=== PATIENT | male | born 1950 | race Caucasian/White ===

== ENCOUNTER 2021-11-24 17:15 | Inpatient (IN) | payer MEDICARE, OTHER ==
[~2021-11-24] VITALS: Ht 167.6 cm; Wt 56.2 kg
[2021-11-24] MEDS ORDERED: MELA5TAB PO (19:34)
[2021-11-24] MEDS ORDERED: PYRI100T18 PO (19:34)
[2021-11-24] MEDS ORDERED: MULT-619 PO (19:34)
[2021-11-24] MEDS ORDERED: ASPI81TA31 PO (19:34)
[2021-11-24] MEDS ORDERED: ATOR80TA PO (19:34)
[2021-11-24] MEDS ORDERED: VITAMIN D PO (19:34)
[2021-11-24] MEDS ORDERED: CALC-494 PO (19:34)
[2021-11-24] MEDS ORDERED: ACET-2154 PO (19:34)
[2021-11-24] MEDS ORDERED: ASCO500C18 PO (19:34)
[2021-11-24] MEDS ORDERED: FOLI1TAB94 PO (19:34)
[2021-11-24] MEDS ORDERED: METO-356 PO (19:34)
[2021-11-24] MEDS ORDERED: VITA1CAP PO (19:34)
[2021-11-24] MEDS ORDERED: DOCU100C36 PO (19:34)
[2021-11-24] MEDS ORDERED: ACET-73 PO (19:34)
[2021-11-24 20:00] LABS: *BLOOD, URINE NEGATIVE (NEGATIVE); *COLOR,URINE YELLOW (YELLOW); *KETONES,URINE 1+ (NEGATIVE); *UROBILINOGEN,URINE >=8.0 E.U./dl (NORMAL); LEUKOCYTE ESTERASE ,URINE NEGATIVE (NEGATIVE); NITRITE, URINE NEGATIVE (NEGATIVE); UGLUCOSE NEGATIVE (NEGATIVE)
[2021-11-24 20:02] LABS: *BILIRUBIN,URIN 1+ (NEGATIVE)
[2021-11-24 20:12] LABS: *CLARITY,URINE HAZY (CLEAR); BACTERIA,URINE FEW /HPF (NONE SEEN); RBC,URINE 0-3 /HPF (0-3); SQUAMOUS EPITHELIAL CELL,UR FEW /HPF (NONE SEEN)
[2021-11-24 20:13] LABS: *AMPHETAMINE, URINE NEGATIVE (NEGATIVE); *CANNABINOID, URINE NEGATIVE (NEGATIVE); *COCCAINE, URINE NEGATIVE (NEGATIVE); *OPIATE, URINE NEGATIVE (NEGATIVE); *PHENCYCLIDINE SCREEN,URINE NEGATIVE (NEGATIVE); URINE AMORPHOUS PHOSPHATES MANY /HPF
[2021-11-24 20:19] LABS: HEMATOCRIT 39.5 % (36.7-47.1); MEAN CORPUSCULAR HEMOGLOBIN 33.8 uug (23.8-33.4); MEAN CORPUSCULAR VOLUME 96.9 fL (73.0-96.2); PLATELET COUNT (AUTO) 224 K/uL (152-348)
[2021-11-24 20:25] LABS: CREATININE 0.7 mg/dL (0.6-1.3); POTASSIUM 3.5 mmol/L (3.5-5.1)
[2021-11-24 20:30] LABS: ALANINE AMINOTRANSFERASE 17 U/L (16-63); ALKALINE PHOSPHATASE 69 U/L (50-136); ASPARTATE AMINOTRANSFERASE 18 U/L (15-37); BILIRUBIN,DIRECT 0.2 mg/dL (0.0-0.2); BILIRUBIN,TOTAL 0.7 mg/dL (0.2-1.0); ETHANOL < 3 MG/DL (0-0); TOTAL PROTEIN, SERUM 7.5 g/dL (6.4-8.2)
[2021-11-24 20:32] LABS: ACETAMINOPHEN < 2.0 ug/mL (10-30)
--- NOTE | 2021-11-24 21:50 | NUR ---
MEDICALLY CLEAR BY DR HOLDER.
--- NOTE | 2021-11-24 21:53 | NUR ---
CALLED KIERA FROM PET TE[facility]. ETA IS 1.5HR FROM NOW.
--- NOTE | 2021-11-24 23:14 | NUR ---
TONYA FROM PET TE[facility] HERE TO EVAL PATIENT
--- NOTE | 2021-11-24 23:48 | NUR ---
TONYA FROM PET TEAM PLACED PATIENT ON 5150 HOLD FOR GD AND DTO.
[2021-11-25] MEDS ORDERED: LORAZEPAM 0.5 MG TABLET PO PRN (00:45)
[2021-11-25] MEDS ORDERED: MAGNESIUM HYDROXIDE 30 ML LIQUID UDC PO PRN (00:45)
[2021-11-25] MEDS ORDERED: ACETAMINOPHEN 325 MG TABLET PO PRN (00:45)
[2021-11-25] MEDS ORDERED: BLOOD SUGAR DIAGNOSTIC 1 EACH STRIP VI ONE (00:45)
[2021-11-25] MEDS ORDERED: MAG HYDROX/AL HYDROX/SIMETH 30 ML LIQUID UDC PO PRN (00:45)
--- NOTE | 2021-11-25 00:45 | NUR ---
PATIENT TRANSFERED TO MHU VIA [facility]NY WITH NO DISTRESS NOTED.
[2021-11-25 01:27] VITALS: BP 146/99
--- NOTE | 2021-11-25 02:15 | NUR ---
Admitted from the ER on a 72 hour hold for danger to others/gravely disabled, a transfer from [facility]. According to the hold, he was aggressive towards staff and other residents, and has been refusing medications and food, for the past week. Upon arrival, he was confused, speaking British, but speaking incoherently, according to truss driver helper. He was advised of his hold, but was unable to comprehend. He was cooperative, with physical assessment, used the urinal, and went right to sleep. As of now, he remains asleep. no distress noted. Patients rights book in British, was placed at bedside.
--- NOTE | 2021-11-25 09:38 | NUR ---
SW Facility Contact: SW contacted [facility] [place] [address] ([phone]) and spoke to Natalie Chowdhury ([phone]) who stated that the pt is welcome back upon discharge and that their facility will provide transportation from [facility] upon discharge. Natalie stated they do not need prior notice for transportation.
--- NOTE | 2021-11-25 10:12 | NUR ---
GPS: RECEIVED PT ON BED, AWAKE AND ALERT TO HIS NAME ONLY. WITH CONFUSION NOTED. PHYSICAL THERAPY DID SOME AMBULATION ON PT AND PT WALKED WELL PER ASSESSMENT. NO AGITATION AT THIS TIME. WILL MONITOR PT.
--- NOTE | 2021-11-25 11:15 | NUR ---
HARPAL Initial Discharge Note: Pt currently resides at [facility] facility located at [address] [place] [address] ([phone]). Per pt's daughter Fran ([phone]), pt can return to his accepted facility at [facility] or discharge to a new SNF of pt's psychiatrists choice. HARPAL will continue to work with pt, family and MD to ensure a safe and proper discharge plan.
--- NOTE | 2021-11-25 11:16 | NUR ---
HARPAL Admit Source: Per 5150 hold, pt was brought to [facility] from ER to be evaluated. Pt currently resides at [facility] facility located at [address] [place] [address] ([phone]). Per pt's daughter Fran ([phone]), pt can return to his accepted facility at [facility] or discharge to a new SNF of pt's psychiatrists choice. HARPAL will continue to work with pt, family and MD to ensure a safe and proper discharge plan.
--- NOTE | 2021-11-25 11:41 | NUR ---
Firearms Report: Academic Computing Director completed and submitted a [employer] firearms report for 5150 a danger to others and grave disability certifications. A copy of report has been placed in patient chart.
[2021-11-25 15:43] VITALS: BP 106/66
--- NOTE | 2021-11-25 17:40 | NUR ---
GPS: PT ISOLATIVE AND STAYS ON BED THE WHOLE TIME. NO AGITATION NOTED OR AGGRESSIVE BEHAVIOR. PT HAVE POOR INTAKE. ENCOURAGED TO INCREASE FOOD AND FLUID INTAKE. PT CONFUSED AND UNABLE TO COMPREHEND AND NO SENSE WHEN IT COMES TO CONVERSATION. WILL MONITOR PT.
[2021-11-25 19:45] VITALS: BP 128/84
[2021-11-25] MEDS: DIVALPROEX SPRINKLE 125 MG CAP.SPRINK PO SCH ×2 (20:44→21:00)
[2021-11-25] MEDS: QUETIAPINE FUMARATE 25 MG TABLET PO SCH ×2 (20:44→21:00)
--- NOTE | 2021-11-25 22:00 | NUR ---
patient noted A/O x 2. he is noted isolative and guarded. Poor insight is noted into his admission to MHU. he refused all his QHS medications/ He was informed of the importance to comply with his medication to improved his condition yet ineffective. Patient was reassured for his safety. reality check done. safety and fall precaution in place. V/S stable. PO fluids and snacks were given. will continue to monitor.
[2021-11-26 07:30] VITALS: BP 137/88
[2021-11-26 07:44] LABS: MEAN CORPUSCULAR HEMOGLOBIN 33.9 uug (23.8-33.4); MEAN CORPUSCULAR VOLUME 97.8 fL (73.0-96.2); PLATELET COUNT (AUTO) 207 K/uL (152-348)
[2021-11-26 08:07] LABS: CREATININE 0.7 mg/dL (0.6-1.3); MAGNESIUM 2.1 mg/dL (1.8-2.4); PHOSPHOROUS 3.4 mg/dL (2.5-4.9); POTASSIUM 3.2 mmol/L (3.5-5.1)
[2021-11-26 08:27] LABS: THYROID STIMULATING HORMONE 1.386 mIU/mL (0.358-3.740)
[2021-11-26] MEDS: PYRIDOXINE HCL 100 MG TABLET PO SCH (08:45)
[2021-11-26] MEDS: ASCORBIC ACID 500 MG TABLET PO SCH (08:45)
[2021-11-26] MEDS: METOPROLOL SUCCINATE XL 25 MG TAB.SR.24H PO SCH (08:48)
[2021-11-26] MEDS: MULTIVITAMINS,THERAPEUTIC TABLET PO SCH (08:49)
[2021-11-26] MEDS: QUETIAPINE FUMARATE 25 MG TABLET PO SCH ×2 (08:49→21:00)
[2021-11-26] MEDS: DIVALPROEX SPRINKLE 125 MG CAP.SPRINK PO SCH ×2 (08:50→21:00)
[2021-11-26] MEDS: DOCUSATE SODIUM 100 MG CAPSULE PO SCH (08:50)
[2021-11-26] MEDS: FOLIC ACID 1 MG TABLET PO SCH (08:50)
[2021-11-26] MEDS: ASPIRIN 81 MG TAB.CHEW PO SCH (08:50)
[2021-11-26] MEDS: VITAMIN B COMPLEX 1 TABLET PO SCH (08:50)
[2021-11-26] MEDS ORDERED: Medication Not On Formulary EA (Ascorbic Acid (Vitamin C) 1 CAP) PO SCH (09:00)
[2021-11-26] MEDS ORDERED: POTASSIUM CHLORIDE 20 MEQ TAB.PRT.SR PO ONE (09:30)
--- NOTE | 2021-11-26 09:52 | NUR ---
GPS: PT REMAIN ISOLATIVE, STAYS IN HIS ROOM. REFUSED THE AM MEDS GIVEN. EXPLAINED THE RISK AND BENEFITS.
[2021-11-26 16:00] VITALS: BP 105/69
[2021-11-26 20:00] VITALS: BP 111/81
[2021-11-26] MEDS: ATORVASTATIN 20 MG TABLET PO SCH (21:00)
--- NOTE | 2021-11-26 22:08 | NUR ---
Received patient in his room in bed. He is noted A/O x 1. he is a poor historian, tangental and suspicious. Poor insight and judgment is noted as to the reason for his admission to MHU. He refused all his [facility] medications. he was informed of the importance of compliant with his medication regiment to improved his symptoms, yet ineffective. V/S are stable. he was given PO fluid and snacks. He was reassured for his safety. safety and fall precautions are in place. will continue to monitor.
--- NOTE | 2021-11-27 06:42 | NUR ---
patient slept for approx 8.45 hrs through the night, he continue Isolative and withdrawn. His Hold will today at 2348. Will continue to monitor.
[2021-11-27 07:30] VITALS: BP 119/84
[2021-11-27] MEDS: DOCUSATE SODIUM 100 MG CAPSULE PO SCH (09:00)
[2021-11-27] MEDS: MULTIVITAMINS,THERAPEUTIC TABLET PO SCH (09:00)
[2021-11-27] MEDS: FOLIC ACID 1 MG TABLET PO SCH (09:00)
[2021-11-27] MEDS: PYRIDOXINE HCL 100 MG TABLET PO SCH (09:00)
[2021-11-27] MEDS: DIVALPROEX SPRINKLE 125 MG CAP.SPRINK PO SCH ×2 (09:00→20:18)
[2021-11-27] MEDS: METOPROLOL SUCCINATE XL 25 MG TAB.SR.24H PO SCH (09:00)
[2021-11-27] MEDS: ASCORBIC ACID 500 MG TABLET PO SCH (09:00)
[2021-11-27] MEDS: VITAMIN B COMPLEX 1 TABLET PO SCH (09:00)
[2021-11-27] MEDS: ASPIRIN 81 MG TAB.CHEW PO SCH (09:00)
[2021-11-27] MEDS: QUETIAPINE FUMARATE 25 MG TABLET PO SCH ×2 (09:00→20:18)
--- NOTE | 2021-11-27 10:01 | NUR ---
GPS: PT CONTINUES TO REFUSE MEDICATION. EXPLAINED RISK AND BENEFITS OF TAKING MEDICATION. SEEN BY PSYCHIATRIST/CHECKOUT OPERATOR, WILL FILE REISE PETITION. UNABLE TO COMPREHEND MOST OF THE TIME.
[2021-11-27 16:00] VITALS: BP 127/80
[2021-11-27] MEDS: ENSURE ENLIVE (VAN) 240 ML LIQUID PO SCH (17:00)
[2021-11-27 20:00] VITALS: BP 115/87
[2021-11-27] MEDS: ATORVASTATIN 20 MG TABLET PO SCH (20:18)
--- NOTE | 2021-11-28 06:22 | NUR ---
14-day Hold signed by Dr. Aguilar, faxed to court by María BURGER. Copies given to pt and placed in chart. Will endorse confirmation of receipt to day shift nurse.
[2021-11-28 07:30] VITALS: BP 123/73
[2021-11-28] MEDS: PYRIDOXINE HCL 100 MG TABLET PO SCH (09:00)
[2021-11-28] MEDS: ASCORBIC ACID 500 MG TABLET PO SCH (09:00)
[2021-11-28] MEDS: FOLIC ACID 1 MG TABLET PO SCH (09:00)
[2021-11-28] MEDS: DOCUSATE SODIUM 100 MG CAPSULE PO SCH (09:00)
[2021-11-28] MEDS: QUETIAPINE FUMARATE 25 MG TABLET PO SCH ×2 (09:00→20:32)
[2021-11-28] MEDS: ASPIRIN 81 MG TAB.CHEW PO SCH (09:00)
[2021-11-28] MEDS: MULTIVITAMINS,THERAPEUTIC TABLET PO SCH (09:00)
[2021-11-28] MEDS: DIVALPROEX SPRINKLE 125 MG CAP.SPRINK PO SCH ×2 (09:00→10:38)
[2021-11-28] MEDS: VITAMIN B COMPLEX 1 TABLET PO SCH (09:00)
[2021-11-28] MEDS: METOPROLOL SUCCINATE XL 25 MG TAB.SR.24H PO SCH (09:00)
[2021-11-28] MEDS: ENSURE ENLIVE (VAN) 240 ML LIQUID PO SCH ×3 (10:35→17:00)
[2021-11-28 16:45] VITALS: BP 123/80
[2021-11-28] MEDS: ATORVASTATIN 20 MG TABLET PO SCH (20:32)
[2021-11-28 20:45] VITALS: BP 140/98
[2021-11-29 07:29] VITALS: BP 129/76
[2021-11-29] MEDS: MULTIVITAMINS,THERAPEUTIC TABLET PO SCH (08:32)
[2021-11-29] MEDS: ASCORBIC ACID 500 MG TABLET PO SCH (08:32)
[2021-11-29] MEDS: QUETIAPINE FUMARATE 25 MG TABLET PO SCH ×2 (08:32→21:49)
[2021-11-29] MEDS: FOLIC ACID 1 MG TABLET PO SCH (08:32)
[2021-11-29] MEDS: ASPIRIN 81 MG TAB.CHEW PO SCH (08:32)
[2021-11-29] MEDS: VITAMIN B COMPLEX 1 TABLET PO SCH (08:33)
[2021-11-29] MEDS: DOCUSATE SODIUM 100 MG CAPSULE PO SCH (08:33)
[2021-11-29] MEDS: DIVALPROEX SPRINKLE 125 MG CAP.SPRINK PO SCH ×2 (08:33→21:49)
[2021-11-29] MEDS: ENSURE ENLIVE (VAN) 240 ML LIQUID PO SCH ×3 (08:47→17:00)
[2021-11-29] MEDS: METOPROLOL SUCCINATE XL 25 MG TAB.SR.24H PO SCH (08:50)
[2021-11-29] MEDS: PYRIDOXINE HCL 100 MG TABLET PO SCH (08:52)
--- NOTE | 2021-11-29 09:05 | NUR ---
Gps/Sales And Marketing Intern- Patient gets tricky, tried to spit out meds., pretending he swallowed his pills, reoffered, crushed meds, administered with small bites of apple sauce, instructed to swallow twice, gave sips of water at intervals, making sure he swallowed . Poor intake, assisted with his ensure, poor initiation,
[2021-11-29 16:44] VITALS: BP 131/85
[2021-11-29 20:00] VITALS: BP 123/87
[2021-11-29] MEDS: ATORVASTATIN 20 MG TABLET PO SCH (21:49)
--- NOTE | 2021-11-30 04:35 | NUR ---
Received to care, lying in bed. Compliant with medications and assisted with a snack, at bedtime, in which he ate 50% of a container of pudding, and a glass of milk. Afterwards, he was seen walking the hallway, before going to sleep. He has mostly slept through the night, soundly. He currently continues to sleep. No distress noted.
[2021-11-30 07:30] VITALS: BP 127/30
[2021-11-30] MEDS: DIVALPROEX SPRINKLE 125 MG CAP.SPRINK PO SCH ×3 (08:55→21:00)
[2021-11-30] MEDS: ASPIRIN 81 MG TAB.CHEW PO SCH (08:55)
[2021-11-30] MEDS: FOLIC ACID 1 MG TABLET PO SCH (08:56)
[2021-11-30] MEDS: QUETIAPINE FUMARATE 25 MG TABLET PO SCH ×3 (08:56→21:00)
[2021-11-30] MEDS: ASCORBIC ACID 500 MG TABLET PO SCH (08:56)
[2021-11-30] MEDS: MULTIVITAMINS,THERAPEUTIC TABLET PO SCH (08:56)
[2021-11-30] MEDS: PYRIDOXINE HCL 100 MG TABLET PO SCH ×2 (08:58→09:41)
[2021-11-30] MEDS: METOPROLOL SUCCINATE XL 25 MG TAB.SR.24H PO SCH (08:58)
[2021-11-30] MEDS: DOCUSATE SODIUM 100 MG CAPSULE PO SCH (09:00)
[2021-11-30] MEDS: VITAMIN B COMPLEX 1 TABLET PO SCH (09:42)
[2021-11-30] MEDS: ENSURE ENLIVE (VAN) 240 ML LIQUID PO SCH ×3 (09:43→17:30)
--- NOTE | 2021-11-30 11:30 | NUR ---
Gps/Bell Attendant- FADIA Manuel in the room with patient , while making pt's bed, patient had a fall facing face forward, per TENTER FRAME OPERATOR unable to get to help patient right away r/t she's in the other side of the bed. Noted patient right upper eyebrow laceration, , called PRINTED CIRCUIT BOARD PANELS DEBURRER to evaluate pt. Dr Jeter was called by Charge Nurse Radha, orders received to take patient ER for further evaluation. Nadja Foreman DNP was also in to see patient. B/P 129/99-02 sat 97%, HR 54 18 , complained of pain on his forehead, ice pack applied . Taken to ER via bed w/ 2 RT. assisting.
--- NOTE | 2021-11-30 13:30 | NUR ---
Gps/Furniture Upholstery Mechanic- Called Fran (daughter) was informed , notified , of the fall. Per daughter unable to come for visit today, but will try to call patient lat a later time when he's back in the the unit ([facility]HU)
[2021-11-30] MEDS ORDERED: LIDOCAINE 1%-EPI 1:100,000 20 ML VIAL IJ ONE (13:45)
--- NOTE | 2021-11-30 15:30 | NUR ---
Gps/Die Cast Supervisor- Received back from ER via bed, ER Nurse assisting staff in bringing patient back to his room. In no sign of any distress, reviewed safety. Bandaid dressing to left eyebrow , noted wit scanty blood stain on the corner of his left eye. face cleansed with NS pat dry, folded 2x2 dressings was applied, noted suture inner cantus of the left eye brown. Safety reviewed in simple Honduran , bed alarm on, monitoring needs.
[2021-11-30 16:00] VITALS: BP 124/78
--- NOTE | 2021-11-30 17:35 | NUR ---
Gps/Retread Builder- Fluids offered, , oral mucosa dry. Also noted abrasion to bridge of his nose , kept left eyebrow dressing iintact. , secured. . B/P 124/78, HR 70, resp. 18, Temp. 97.8 otal , grimaces noted during dressing chnages left eyebrow
[2021-11-30 20:00] VITALS: BP 107/77
[2021-11-30] MEDS: ATORVASTATIN 20 MG TABLET PO SCH ×2 (20:05→21:00)
--- NOTE | 2021-11-30 21:00 | NUR ---
Received patient in the hallway sitting in a lucía chair closed to the nursing station for safety. He is noted A/O x 1. Disorganized speech, tangental, poor eye contact, and poor historian. affect is blunted, mood is low. Patient continue refusing QHS PO medications. Multiple attempts to administer medication, yet ineffective. will continue to offer. Laceration adjacent to his left eyebrow was cleaned with NS and a new bandage was applied. Sutures are intact; No active bleeding, no discharge was noted and, no S/S of infection was observed at this time. V/S stable. PO fluids and snacks were offered, patient has poor intake, he requires redirection and reassurance. Patient is reassured for his safety. safety and fall precautions are in place. Will continue to monitor.
[2021-12-01 07:38] VITALS: BP 110/76
[2021-12-01] MEDS: ASPIRIN 81 MG TAB.CHEW PO SCH (08:50)
[2021-12-01] MEDS: FOLIC ACID 1 MG TABLET PO SCH (08:50)
[2021-12-01] MEDS: ENSURE ENLIVE (VAN) 240 ML LIQUID PO SCH ×3 (08:50→16:42)
[2021-12-01] MEDS: DIVALPROEX SPRINKLE 125 MG CAP.SPRINK PO SCH ×2 (08:50→21:56)
[2021-12-01] MEDS: DOCUSATE SODIUM 100 MG CAPSULE PO SCH (08:50)
[2021-12-01] MEDS: VITAMIN B COMPLEX 1 TABLET PO SCH (08:50)
[2021-12-01] MEDS: QUETIAPINE FUMARATE 25 MG TABLET PO SCH (08:51)
[2021-12-01] MEDS: METOPROLOL SUCCINATE XL 25 MG TAB.SR.24H PO SCH (08:51)
[2021-12-01] MEDS: ASCORBIC ACID 500 MG TABLET PO SCH (08:51)
[2021-12-01] MEDS: MULTIVITAMINS,THERAPEUTIC TABLET PO SCH (08:51)
--- NOTE | 2021-12-01 15:44 | NUR ---
GPS: Nursing Notes: Destructive Behavior To Others: Patient is awake and responding to his name, impaired judgment, resistant with nursing care, paranoid behavior, resistant with nursing care, episode of shouting to unseen others, refusing his medications, internally preoccupied, unable to formulate a viable plan for self care, disorganized, confused, disoriented, continue to monitor for safety, continue with treatment plan.
[2021-12-01] MEDS ORDERED: HALOPERIDOL LACTATE 5 MG/1 ML VIAL IM SCH (17:15)
[2021-12-01] MEDS: HALOPERIDOL LACTATE 10 MG/5 ML ORAL SOLUTION UDC PO SCH (17:54)
--- NOTE | 2021-12-01 17:55 | NUR ---
GPS: Nursing Notes: Haldol Injection: Patient is Rilos. Medication - Haldol PO taken by patient, so Haldol injection not given per Dr. Aguilar's order, continue to monitor for safety, continue with treatment plan.
[2021-12-01] MEDS ORDERED: HALOPERIDOL LACTATE 5 MG/1 ML VIAL IM PRN (18:30)
[2021-12-01 20:00] VITALS: BP 108/63
[2021-12-01 20:14] VITALS: BP 140/99
[2021-12-01 20:24] VITALS: BP 126/99
[2021-12-01 20:25] VITALS: BP 108/63
--- NOTE | 2021-12-01 20:27 | NUR ---
ORTHOSTATIC VITAL SIGNS NOTE; B/P 140/99, HR 86 lying/ 126/99, HR 96 sitting/ 108/63, HR standing. Pt is confused, but did not appear to exhibit dizziness, or light headedness.
[2021-12-01] MEDS: ATORVASTATIN 20 MG TABLET PO SCH (21:56)
[2021-12-01] MEDS: TEMAZEPAM 7.5 MG CAPSULE PO PRN (23:21)
--- NOTE | 2021-12-02 02:49 | NUR ---
Received this evening, up in annemarie chair, at nurses desk, for safety, talking to self. Per banbury operator. he is confused and oriented to person only. Compliant with medications, but was chewing pills, when administered. Assisted wirh feeding some pudding, but able \to drink a whole bottle of ensure himself, a glass at a time. PRN Restoril was given at 2321, and he was assisted to bed, at around 0030, and went right to sleep, and continues to sleep. No distress noted.
[2021-12-02 08:00] VITALS: BP 117/81
[2021-12-02] MEDS: ASPIRIN 81 MG TAB.CHEW PO SCH (08:22)
[2021-12-02] MEDS: FOLIC ACID 1 MG TABLET PO SCH (08:23)
[2021-12-02] MEDS: ASCORBIC ACID 500 MG TABLET PO SCH (08:23)
[2021-12-02] MEDS: DOCUSATE SODIUM 100 MG CAPSULE PO SCH (08:23)
[2021-12-02] MEDS: HALOPERIDOL LACTATE 10 MG/5 ML ORAL SOLUTION UDC PO SCH ×2 (08:23→16:35)
[2021-12-02] MEDS: DIVALPROEX SPRINKLE 125 MG CAP.SPRINK PO SCH ×2 (08:23→21:45)
[2021-12-02] MEDS: PYRIDOXINE HCL 100 MG TABLET PO SCH (08:23)
[2021-12-02] MEDS: VITAMIN B COMPLEX 1 TABLET PO SCH (08:23)
[2021-12-02] MEDS: MULTIVITAMINS,THERAPEUTIC TABLET PO SCH (08:23)
[2021-12-02] MEDS: METOPROLOL SUCCINATE XL 25 MG TAB.SR.24H PO SCH (08:24)
[2021-12-02] MEDS: ENSURE ENLIVE (VAN) 240 ML LIQUID PO SCH ×3 (08:27→16:36)
--- NOTE | 2021-12-02 13:13 | NUR ---
GPS: Nursing Notes: Thought Disorder: Patient is awake and responding to his name, confused, disoriented, disorganized, resistant with nursing care, internally preoccupied, episodes of talking to unseen others, impaired judgment, redirected and reoriented during shift, slightly paranoid at times, believes that we are against him, unable to formulate a viable plan for self care, continue to monitor for safety, continue with treatment plan.
[2021-12-02 16:00] VITALS: BP 104/67
[2021-12-02 17:12] VITALS: BP_SYST 104; BP_SYST 128; BP_DIAS 67; BP_DIAS 72
[2021-12-02 20:09] VITALS: BP 130/87
[2021-12-02] MEDS: ATORVASTATIN 20 MG TABLET PO SCH (21:45)
[2021-12-02] MEDS: TEMAZEPAM 7.5 MG CAPSULE PO PRN (22:56)
--- NOTE | 2021-12-03 03:48 | NUR ---
RECEIVED TO CARE, UP IN KELLY CHAIR FOR SAFETY, SLEEPING INTERMITTENTLY. COMPLIANT WITH MEDICATIONS, FOOD, AND FLUIDS. PRN RESTORIL WAS GIVEN AT 2256 FOR INCREASING RESTLESSNESS. hE WAS ASSISTED TO BED AROUND 2330, AND SLEPT UNTIL AROUND 0330, WHEN HE CLIMBED OUT OF BED. hE WAS THEN ASSISTED UP IN THE KELLY CHAIR WITH PILLOWS AND BLANKET AT NURSES STATION, AND WENT BACK TO SLEEP, AND REMAINS CALM AND ASLEEP. NO DISTRESS NOTED.
[2021-12-03 07:51] VITALS: BP 90/53
[2021-12-03] MEDS: METOPROLOL SUCCINATE XL 25 MG TAB.SR.24H PO SCH (08:50)
[2021-12-03] MEDS: DOCUSATE SODIUM 100 MG CAPSULE PO SCH (09:00)
[2021-12-03] MEDS: ASPIRIN 81 MG TAB.CHEW PO SCH (09:00)
[2021-12-03] MEDS: FOLIC ACID 1 MG TABLET PO SCH (09:00)
[2021-12-03] MEDS: PYRIDOXINE HCL 100 MG TABLET PO SCH (09:00)
[2021-12-03] MEDS: HALOPERIDOL LACTATE 10 MG/5 ML ORAL SOLUTION UDC PO SCH ×2 (09:00→17:57)
[2021-12-03] MEDS: VITAMIN B COMPLEX 1 TABLET PO SCH (09:00)
[2021-12-03] MEDS: ASCORBIC ACID 500 MG TABLET PO SCH (09:00)
[2021-12-03] MEDS: ENSURE ENLIVE (VAN) 240 ML LIQUID PO SCH ×3 (09:00→17:00)
[2021-12-03] MEDS: MULTIVITAMINS,THERAPEUTIC TABLET PO SCH (09:00)
[2021-12-03] MEDS: DIVALPROEX SPRINKLE 125 MG CAP.SPRINK PO SCH ×2 (09:00→21:00)
[2021-12-03 16:00] VITALS: BP 111/73
[2021-12-03 20:00] VITALS: BP 114/72
[2021-12-03] MEDS: ATORVASTATIN 20 MG TABLET PO SCH (21:00)
--- NOTE | 2021-12-03 22:00 | NUR ---
Received patient to care sitting in a babak chair near the nursing station for safety. He is noted A/O 1, unable to have a meaningful conversation with this fiction and nonfiction prose writer. Patient is hard to redirect. He refused all his QHS medication, multiple attempts, yet ineffective. he is suspicious and guarded. No aggressive or combative bx noted at this time. V/S stable. he was given PO fluids and snacks. Patient is reassured for safety. safety and fall precaution are in place. will continue to monitor.
[2021-12-04 08:07] VITALS: BP 120/72
[2021-12-04] MEDS: HALOPERIDOL LACTATE 10 MG/5 ML ORAL SOLUTION UDC PO SCH ×2 (08:56→17:47)
[2021-12-04] MEDS: ASCORBIC ACID 500 MG TABLET PO SCH (08:56)
[2021-12-04] MEDS: PYRIDOXINE HCL 100 MG TABLET PO SCH (08:56)
[2021-12-04] MEDS: FOLIC ACID 1 MG TABLET PO SCH (08:57)
[2021-12-04] MEDS: DOCUSATE SODIUM 100 MG CAPSULE PO SCH (08:57)
[2021-12-04] MEDS: ASPIRIN 81 MG TAB.CHEW PO SCH (08:57)
[2021-12-04] MEDS: MULTIVITAMINS,THERAPEUTIC TABLET PO SCH (08:57)
[2021-12-04] MEDS: METOPROLOL SUCCINATE XL 25 MG TAB.SR.24H PO SCH (08:57)
[2021-12-04] MEDS: DIVALPROEX SPRINKLE 125 MG CAP.SPRINK PO SCH ×2 (08:58→20:17)
[2021-12-04] MEDS: ENSURE ENLIVE (VAN) 240 ML LIQUID PO SCH ×3 (08:59→17:46)
[2021-12-04] MEDS: VITAMIN B COMPLEX 1 TABLET PO SCH (09:12)
[2021-12-04] MEDS ORDERED: HALOPERIDOL DECANOATE 50 MG/1 ML AMPUL IM SCH (11:00)
[2021-12-04] MEDS ORDERED: BLOOD SUGAR DIAGNOSTIC 1 EACH STRIP VI ONE ×2 (14:15)
--- NOTE | 2021-12-04 17:02 | NUR ---
Received patient sleeping in his room. A/O X 1 -2 to person. Pt. is disorganized, confused, disoriented, calm, cooperative. Compliant with medications. Ambulates with assistance. Requires more than minimal assistance with ADL. Reassurance given. Fall and safety precautions implemented.
--- NOTE | 2021-12-04 17:06 | NUR ---
Dr. Easley ordered Haldol Decanoate long acting 50 mg/ml IM q14 days. Medication was administered at 11:45 am.
[2021-12-04 19:43] VITALS: BP 121/75
[2021-12-04] MEDS: ATORVASTATIN 20 MG TABLET PO SCH (20:17)
[2021-12-05 07:30] VITALS: BP 116/69
[2021-12-05 07:48] LABS: ALANINE AMINOTRANSFERASE 16 U/L (16-63); ALKALINE PHOSPHATASE 53 U/L (50-136); ASPARTATE AMINOTRANSFERASE 21 U/L (15-37); CARBON DIOXIDE 30 mmol/L (21-32); CHLORIDE 105 mmol/L (98-107); CREATININE 0.6 mg/dL (0.6-1.3); GLUCOSE 82 mg/dL (74-106); POTASSIUM 2.9 mmol/L (3.5-5.1); TOTAL PROTEIN, SERUM 6.4 g/dL (6.4-8.2); UREA NITROGEN, BLOOD 10 mg/dL (7-18)
[2021-12-05] MEDS: ASCORBIC ACID 500 MG TABLET PO SCH (08:46)
[2021-12-05] MEDS: MULTIVITAMINS,THERAPEUTIC TABLET PO SCH (08:46)
[2021-12-05] MEDS: ASPIRIN 81 MG TAB.CHEW PO SCH (08:46)
[2021-12-05] MEDS: DIVALPROEX SPRINKLE 125 MG CAP.SPRINK PO SCH ×2 (08:46→20:04)
[2021-12-05] MEDS: FOLIC ACID 1 MG TABLET PO SCH (08:46)
[2021-12-05] MEDS: PYRIDOXINE HCL 100 MG TABLET PO SCH (08:47)
[2021-12-05] MEDS: DOCUSATE SODIUM 100 MG CAPSULE PO SCH (08:47)
[2021-12-05] MEDS: VITAMIN B COMPLEX 1 TABLET PO SCH (08:47)
[2021-12-05] MEDS: HALOPERIDOL LACTATE 10 MG/5 ML ORAL SOLUTION UDC PO SCH ×2 (08:48→16:46)
[2021-12-05] MEDS: METOPROLOL SUCCINATE XL 25 MG TAB.SR.24H PO SCH (08:48)
[2021-12-05] MEDS: ENSURE ENLIVE (VAN) 240 ML LIQUID PO SCH ×3 (08:59→17:04)
[2021-12-05] MEDS ORDERED: POTASSIUM CHLORIDE 20 MEQ TAB.PRT.SR PO ONE ×2 (11:00→13:00)
--- NOTE | 2021-12-05 15:30 | NUR ---
Patient is received sleeping in his room. A/O X 1 -2 to person. Pt. is confused, disoriented, suspicious with food and medications, disorganized, lethargic. Ambulates with assistance. 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 Requires more than minimal assistance with ADL. New order of Potassium 20 mg PO for low potassium of 2.9. Reality orientation provided. Fall and safety precautions implemented.
[2021-12-05 17:09] VITALS: BP 116/62
--- NOTE | 2021-12-05 19:06 | NUR ---
Patient is given Ativan 1 mg for anxiety, will be monitored for effectiveness. Addendum: 12/05/21 at 1929 by LOIS MONTALVO RN Please disregard previous charting, due wrong patient.
--- NOTE | 2021-12-05 19:08 | NUR ---
Please disregard this charting, wrong patient.
[2021-12-05 20:00] VITALS: BP 122/65
[2021-12-05] MEDS: ATORVASTATIN 20 MG TABLET PO SCH (20:04)
--- NOTE | 2021-12-06 06:11 | NUR ---
GPS: patient slept for approx 7.15 hrs through the night, Patient noted Isolative and withdrawn. assisted with adl's. no agitation noted at this time. resting in bed comfortably. Will continue to monitor.
[2021-12-06 08:36] LABS: CREATININE 0.7 mg/dL (0.6-1.3); POTASSIUM 3.1 mmol/L (3.5-5.1)
[2021-12-06 08:39] VITALS: BP 132/79
[2021-12-06] MEDS: PYRIDOXINE HCL 100 MG TABLET PO SCH (08:53)
[2021-12-06] MEDS: MULTIVITAMINS,THERAPEUTIC TABLET PO SCH (08:53)
[2021-12-06] MEDS: DIVALPROEX SPRINKLE 125 MG CAP.SPRINK PO SCH ×2 (08:53→21:00)
[2021-12-06] MEDS: DOCUSATE SODIUM 100 MG CAPSULE PO SCH (08:53)
[2021-12-06] MEDS: FOLIC ACID 1 MG TABLET PO SCH (08:53)
[2021-12-06] MEDS: VITAMIN B COMPLEX 1 TABLET PO SCH (08:53)
[2021-12-06] MEDS: ASCORBIC ACID 500 MG TABLET PO SCH (08:53)
[2021-12-06] MEDS: ASPIRIN 81 MG TAB.CHEW PO SCH (08:53)
[2021-12-06] MEDS: HALOPERIDOL LACTATE 10 MG/5 ML ORAL SOLUTION UDC PO SCH ×2 (08:53→16:20)
[2021-12-06] MEDS: ENSURE ENLIVE (VAN) 240 ML LIQUID PO SCH ×3 (08:54→16:20)
[2021-12-06] MEDS: METOPROLOL SUCCINATE XL 25 MG TAB.SR.24H PO SCH (08:54)
[2021-12-06] MEDS ORDERED: POTASSIUM CHLORIDE 20 MEQ TAB.PRT.SR PO ONE (09:30)
--- NOTE | 2021-12-06 14:45 | NUR ---
GPS: Nursing Notes: Thought Disorder: Patient is awake and responding to his name, compliant with his medications, isolative and withdrawn in his room, disoriented, confused, disorganized, impaired judgment, episodes of talking incoherently, needs assistance with ADL's, unable to formulate a viable plan for self care, continue to monitor for safety, continue with treatment plan.
[2021-12-06 16:03] VITALS: BP 112/81
[2021-12-06 20:02] VITALS: BP 100/58
[2021-12-06] MEDS: ATORVASTATIN 20 MG TABLET PO SCH (20:40)
[2021-12-07 07:34] VITALS: BP 132/79
[2021-12-07 07:52] LABS: CREATININE 0.8 mg/dL (0.6-1.3); POTASSIUM 3.6 mmol/L (3.5-5.1)
[2021-12-07] MEDS: FOLIC ACID 1 MG TABLET PO SCH (08:48)
[2021-12-07] MEDS: HALOPERIDOL LACTATE 10 MG/5 ML ORAL SOLUTION UDC PO SCH ×2 (08:48→16:36)
[2021-12-07] MEDS: ASPIRIN 81 MG TAB.CHEW PO SCH (08:48)
[2021-12-07] MEDS: DOCUSATE SODIUM 100 MG CAPSULE PO SCH (08:48)
[2021-12-07] MEDS: MULTIVITAMINS,THERAPEUTIC TABLET PO SCH (08:48)
[2021-12-07] MEDS: DIVALPROEX SPRINKLE 125 MG CAP.SPRINK PO SCH ×2 (08:48→20:46)
[2021-12-07] MEDS: ASCORBIC ACID 500 MG TABLET PO SCH (08:48)
[2021-12-07] MEDS: VITAMIN B COMPLEX 1 TABLET PO SCH (08:49)
[2021-12-07] MEDS: METOPROLOL SUCCINATE XL 25 MG TAB.SR.24H PO SCH (08:49)
[2021-12-07] MEDS: PYRIDOXINE HCL 100 MG TABLET PO SCH (08:49)
[2021-12-07] MEDS: ENSURE ENLIVE (VAN) 240 ML LIQUID PO SCH ×3 (09:00→16:36)
--- NOTE | 2021-12-07 11:39 | NUR ---
GPS: Nursing Notes: Thought Disorder: Patient is awake and responding to his name, disoriented, disorganized, confused, impaired judgment, assisted with ADL's during shift, needs a lot of prompting to participate in therapeutic groups, unable to formulate a viable plan for self care, unkempt appearance, continue to monitor for safety, continue with treatment plan.
[2021-12-07 16:44] VITALS: BP 127/71
[2021-12-07 19:40] VITALS: BP 134/70
[2021-12-07] MEDS: ATORVASTATIN 20 MG TABLET PO SCH (20:46)
[2021-12-08 08:01] VITALS: BP 97/50
[2021-12-08] MEDS: ASCORBIC ACID 500 MG TABLET PO SCH (08:08)
[2021-12-08] MEDS: DOCUSATE SODIUM 100 MG CAPSULE PO SCH (08:08)
[2021-12-08] MEDS: ASPIRIN 81 MG TAB.CHEW PO SCH (08:08)
[2021-12-08] MEDS: MULTIVITAMINS,THERAPEUTIC TABLET PO SCH (08:08)
[2021-12-08] MEDS: PYRIDOXINE HCL 100 MG TABLET PO SCH (08:08)
[2021-12-08] MEDS: DIVALPROEX SPRINKLE 125 MG CAP.SPRINK PO SCH ×2 (08:08→20:37)
[2021-12-08] MEDS: FOLIC ACID 1 MG TABLET PO SCH (08:08)
[2021-12-08] MEDS: ENSURE ENLIVE (VAN) 240 ML LIQUID PO SCH ×3 (08:08→16:39)
[2021-12-08] MEDS: VITAMIN B COMPLEX 1 TABLET PO SCH (08:08)
[2021-12-08] MEDS: HALOPERIDOL LACTATE 10 MG/5 ML ORAL SOLUTION UDC PO SCH ×2 (08:08→16:38)
[2021-12-08] MEDS: METOPROLOL SUCCINATE XL 25 MG TAB.SR.24H PO SCH (08:09)
--- NOTE | 2021-12-08 13:35 | NUR ---
GPS: Nursing Notes: Thought Disorder: Patient is awake and responding to his name, disoriented, impaired judgment, resistant with nursing care, confused, episodes of talking incoherently, compliant with his mediations, needs prompting to participate in therapeutic groups, unable to formulate a viable plan, unkempt appearance, continue to monitor for safety, continue with treatment plan.
[2021-12-08 16:53] VITALS: BP 104/63
[2021-12-08 20:09] VITALS: BP 101/51
[2021-12-08] MEDS: ATORVASTATIN 20 MG TABLET PO SCH (20:37)
[2021-12-09] MEDS: LORAZEPAM 1 MG TABLET PO PRN ×2 (01:53→20:39)
--- NOTE | 2021-12-09 02:50 | NUR ---
A/O X1,GOT OUT OF BED WITHOUT CALLING OR WAITING FOR ASSIST SEVERAL TIMES. GAIT MORE STEADY BUT STILL HIGH FALL RISK WITH HX.OF RECENT FALL.UNABLE TO FOLLOW DIRECTION WHEN STAFF TOLD HIM TO STAY IN BED AFTER TOOK HIM TO THE BATHROOM BUT HE DID NOTHING THEN STILL TRYING TO GET UP AND OOB AGAIN.PRN MED FOR A/A WAS GIVEN WITH GOOD EFF.IN NO ACUTE DISTRESS.WILL CONTINUE TO MONITOR.
[2021-12-09 08:02] VITALS: BP 93/60
[2021-12-09] MEDS: METOPROLOL SUCCINATE XL 25 MG TAB.SR.24H PO SCH (09:00)
[2021-12-09] MEDS: ASPIRIN 81 MG TAB.CHEW PO SCH (09:14)
[2021-12-09] MEDS: FOLIC ACID 1 MG TABLET PO SCH (09:14)
[2021-12-09] MEDS: VITAMIN B COMPLEX 1 TABLET PO SCH (09:14)
[2021-12-09] MEDS: DOCUSATE SODIUM 100 MG CAPSULE PO SCH (09:14)
[2021-12-09] MEDS: DIVALPROEX SPRINKLE 125 MG CAP.SPRINK PO SCH ×2 (09:14→20:38)
[2021-12-09] MEDS: HALOPERIDOL LACTATE 10 MG/5 ML ORAL SOLUTION UDC PO SCH ×2 (09:14→16:56)
[2021-12-09] MEDS: PYRIDOXINE HCL 100 MG TABLET PO SCH (09:14)
[2021-12-09] MEDS: MULTIVITAMINS,THERAPEUTIC TABLET PO SCH (09:14)
[2021-12-09] MEDS: ENSURE ENLIVE (VAN) 240 ML LIQUID PO SCH ×3 (09:15→16:56)
[2021-12-09] MEDS: ASCORBIC ACID 500 MG TABLET PO SCH (09:16)
--- NOTE | 2021-12-09 14:41 | NUR ---
GPS: PT SEEN BY JORDAN HE NP AND REMOVED THE STITCHES ON LEFT EYEBROW. PT TOLERATED WELL THE PROCEDURE. DENIES ANY PAIN OR DISCOMFORT.
--- NOTE | 2021-12-09 15:37 | NUR ---
GPS: Nursing Notes: Thought Disorder: Patient is awake and responding to his name, cooperative with nursing care, confused, disoriented, episodes of talking incoherently, impaired judgment, poor insight, his appetite has increased, eating 75% of his meals and supplements, needs assistance with ADL's, unable to formulate a viable plan for self care, continue to monitor for safety, continue with treatment plan.
[2021-12-09 16:30] VITALS: BP 99/62
[2021-12-09 19:49] VITALS: BP 95/61
[2021-12-09] MEDS: ATORVASTATIN 20 MG TABLET PO SCH (20:38)
[2021-12-10 07:30] VITALS: BP 96/63
[2021-12-10] MEDS: HALOPERIDOL LACTATE 10 MG/5 ML ORAL SOLUTION UDC PO SCH ×2 (08:55→17:27)
[2021-12-10] MEDS: ASPIRIN 81 MG TAB.CHEW PO SCH (08:58)
[2021-12-10] MEDS: DOCUSATE SODIUM 100 MG CAPSULE PO SCH (08:58)
[2021-12-10] MEDS: PYRIDOXINE HCL 100 MG TABLET PO SCH (08:59)
[2021-12-10] MEDS: DIVALPROEX SPRINKLE 125 MG CAP.SPRINK PO SCH ×2 (08:59→20:23)
[2021-12-10] MEDS: FOLIC ACID 1 MG TABLET PO SCH (08:59)
[2021-12-10] MEDS: METOPROLOL SUCCINATE XL 25 MG TAB.SR.24H PO SCH (09:00)
[2021-12-10] MEDS: ASCORBIC ACID 500 MG TABLET PO SCH (09:01)
[2021-12-10] MEDS: MULTIVITAMINS,THERAPEUTIC TABLET PO SCH (09:01)
[2021-12-10] MEDS: VITAMIN B COMPLEX 1 TABLET PO SCH (09:04)
[2021-12-10] MEDS: ENSURE ENLIVE (VAN) 240 ML LIQUID PO SCH ×3 (09:14→17:32)
--- NOTE | 2021-12-10 15:16 | NUR ---
Received patient awake in the hallway. A/O X 1 -2 to person. Pt. is confused, disoriented, disorganized, selective and suspicious with medications, withdrawn. Pt. ambulates with assistance, unsteady gait. Requires more than minimal assistance with ADL. Reassurance given. Fall and safety precautions implemented.
[2021-12-10 16:00] VITALS: BP 101/64
[2021-12-10 20:00] VITALS: BP 95/64
[2021-12-10] MEDS: ATORVASTATIN 20 MG TABLET PO SCH (20:23)
[2021-12-10] MEDS: LORAZEPAM 1 MG TABLET PO PRN (23:40)
--- NOTE | 2021-12-10 23:42 | NUR ---
patient is very agitated. pushing staff when redirect him. uncooperative with care. ativan 1 mg po given for agitation.
--- NOTE | 2021-12-11 00:42 | NUR ---
nsg: patient is calm now. prn effective.
--- NOTE | 2021-12-11 06:30 | NUR ---
GPS: patient slept for approx 5 hrs through the night, Patient noted Isolative and withdrawn. assisted with adl's. no agitation noted at this time. resting in annemarie chair comfortably. Will continue to monitor.
[2021-12-11 07:21] LABS: CREATININE 0.8 mg/dL (0.6-1.3); POTASSIUM 3.9 mmol/L (3.5-5.1)
[2021-12-11 07:30] VITALS: BP 93/59
[2021-12-11] MEDS: ASCORBIC ACID 500 MG TABLET PO SCH (08:56)
[2021-12-11] MEDS: DOCUSATE SODIUM 100 MG CAPSULE PO SCH (08:56)
[2021-12-11] MEDS: DIVALPROEX SPRINKLE 125 MG CAP.SPRINK PO SCH (08:56)
[2021-12-11] MEDS: ASPIRIN 81 MG TAB.CHEW PO SCH (08:56)
[2021-12-11] MEDS: MULTIVITAMINS,THERAPEUTIC TABLET PO SCH (08:57)
[2021-12-11] MEDS: VITAMIN B COMPLEX 1 TABLET PO SCH (08:57)
[2021-12-11] MEDS: PYRIDOXINE HCL 100 MG TABLET PO SCH (08:57)
[2021-12-11] MEDS: FOLIC ACID 1 MG TABLET PO SCH (08:57)
[2021-12-11] MEDS: ENSURE ENLIVE (VAN) 240 ML LIQUID PO SCH (08:58)
[2021-12-11 09:00] VITALS: BP 93/59
[2021-12-11] MEDS: METOPROLOL SUCCINATE XL 25 MG TAB.SR.24H PO SCH (09:00)
[2021-12-11] MEDS: HALOPERIDOL LACTATE 10 MG/5 ML ORAL SOLUTION UDC PO SCH (09:17)
--- NOTE | 2021-12-11 10:04 | NUR ---
HARPAL Discharge Note: [place] [address] ([phone]) via Ambulance transportation at 11AM. HARPAL spoke with admin coordinator Mariana ([phone]) at the facility who states they are ready to accept the patient today. Pt is aware and agreeable with discharge plans. Pt is alert and oriented x1 (name), is unable to plan for self-care at this time; however, is willing to accept care at SNF. HARPAL left a voicemail for pts daughter, Fran ([phone]) regarding the discharge plan. Fran was aware and agreeable with the initial discharge plan. Pt denies any suicidal or homicidal ideation. Pt will follow-up at the facility with PsychiatristJeff and Earth Sciences Professor, Dr. Ford. Pt presents with calm mood and congruent affect.
--- NOTE | 2021-12-11 11:30 | NUR ---
Gps/Aviation All Source Intelligence- Report called to [facility], all belongings given back to patient. No complaint no sign of any distress. Patient was well informed of his discharged plan today.
--- NOTE | 2021-12-11 12:00 | NUR ---
Gps/Airbrush Artist Photography- Discharged via ambulance , in good spirit, no sign of any discomfort, nor any distress.All belongings given back to patient . Discharged via [facility] ambulance
== END 2021-12-11 12:00 | DRG 885 ==
LOC: ER 17:31 → GPS 23:55
PROVIDERS: ADMIT Nurse Practitioner Psychiatric/Mental Health; ATTEND Internal Medicine
PROC: 0HQ1XZZ Repair Face Skin, External Approach (ICD-10-PCS; principal; 2021-11-30)
DX: F29 Unspecified psychosis not due to a substance or known physiological condition (principal); D68.59 Other primary thrombophilia; F03.91 Unspecified dementia, unspecified severity, with behavioral disturbance; F23 Brief psychotic disorder; S01.112A Laceration without foreign body of left eyelid and periocular area, initial encounter; W07.XXXA Fall from chair, initial encounter; I48.0 Paroxysmal atrial fibrillation; Z74.09 Other reduced mobility; E78.5 Hyperlipidemia, unspecified; D75.89 Other specified diseases of blood and blood-forming organs; E87.6 Hypokalemia; I10 Essential (primary) hypertension; Z86.73 Personal history of transient ischemic attack (TIA), and cerebral infarction without residual deficits; Z87.891 Personal history of nicotine dependence; F39 Unspecified mood [affective] disorder; Y93.9 Activity, unspecified; Y92.230 Patient room in hospital as the place of occurrence of the external cause; R63.6 Underweight; Z68.20 Body mass index [BMI] 20.0-20.9, adult; Z91.14 Patient's other noncompliance with medication regimen; J32.9 Chronic sinusitis, unspecified; Z20.822 Contact with and (suspected) exposure to COVID-19; F43.10 Post-traumatic stress disorder, unspecified; I73.9 Peripheral vascular disease, unspecified; Z89.429 Acquired absence of other toe(s), unspecified side; Z79.82 Long term (current) use of aspirin; Z91.19 Patient's noncompliance with other medical treatment and regimen; F32.A Depression, unspecified
CPT/HCPCS: 36415; 70450; 70486; 71045; 72125; 83735; 84100; 84443; 85025; 93005; 97161; A4663; G0480; J1630; J1631; J3490